=== PATIENT | female | born 1975 | race Hispanic/Latino ===

== ENCOUNTER 2018-12-14 19:06 | Emergency (ER) | payer BC, OTHER ==
[~2018-12-14] VITALS: Ht 167.6 cm; Wt 108.4 kg
[~2018-12-14 19:06] MED LIST: LISINOPRIL-HCT1 EACH PO; LISINOPRIL10 MG PO; MICRONASE2.5 MG; Z.0.ESIDRIX25 MG; Z.0.LEVOTHROID50 MCG PO; Z.0.LIPITOR10 MG; Z.0.LISINOPRIL40 MG
[2018-12-14] MEDS ORDERED: ONDANSETRON HCL INJ 2MG/ML 2ML 2 MG/ML VIAL IV STA (19:14)
[2018-12-14] MEDS ORDERED: SODIUM CHLORIDE 0.9% 1000ML 1,000 ML IV SCH ×2 (19:15→19:30)
[2018-12-14] MEDS ORDERED: MORPHINE SULFATE INJ 4 MG/ML INJ 1ML ONE (19:31)
[2018-12-14] MEDS ORDERED: ONDANSETRON HCL INJ 2MG/ML 2ML 2 MG/ML VIAL ONE (19:31)
--- NOTE | 2018-12-14 19:35 | NUR ---
US TECH ETA 45 MINUTES
[2018-12-14] MEDS ORDERED: MORPHINE SULFATE 5 MG/ML VIAL IV ONE (20:00)
[2018-12-14] MEDS ORDERED: KETOROLAC TROMETHAMINE 30 MG/ML VIAL IV STA (20:10)
[2018-12-14] MEDS ORDERED: PROMETHAZINE HCL (IM) 25 MG/ML VIAL ONE (20:15)
[2018-12-14] MEDS ORDERED: PROMETHAZINE 25MG/ NS 50ML (IV) IV ONE (20:15)
[2018-12-14] MEDS ORDERED: KETOROLAC TROMETHAMINE 30 MG/ML VIAL ONE (20:15)
[2018-12-14] MEDS ORDERED: IOPAMIDOL 370 MG/ML 200 ML INFUS..BTL INJ ONE (20:42)
--- NOTE | 2018-12-14 22:11 | Diagnostic Imaging Report ---
EXAM: Gallbladder ultrasound INDICATION: Abdominal pain, nausea, vomiting COMPARISON: None. TECHNIQUE: Transverse and longitudinal images of the right upper abdomen were obtained. FINDINGS: Liver: Size: 16.5 cm in the right midclavicular line, normal Appearance: Increased echogenicity, smooth contour Mass: No focal masses Gallbladder: Stones/Sludge: None Wall: 0.3 cm Appearance: No pericholecystic fluid or hydrops. Sonographic Asencio's Sign: Negative Bile Ducts: Intrahepatic Ducts: No dilatation Extrahepatic Ducts: Common bile duct measures 0.4 cm, no dilatation Pancreas: Incompletely visualized due to overlying bowel gas, but no abnormality identified involving the visualized portions of the pancreas. Right Kidney: Size: 11.3 cm Echogenicity: Normal Parenchymal thickness: Normal Collecting system: No hydronephrosis Stones: None Cyst/Mass: None Vessels: Aorta: Visualized portions are normal Inferior Vena Cava: Visualized portions are normal Main portal vein: 1.3 cm in diameter, nondilated. Normal direction of hepatopedal blood flow. Free Fluid: No ascites or pleural effusion IMPRESSION: Findings suggestive of hepatic steatosis. No evidence of cholecystitis. Signed by: Umesh Santos DO on 12/14/2018 10:08 PM
--- NOTE | 2018-12-14 22:17 | Diagnostic Imaging Report ---
EXAM: CT Abdomen and Pelvis WITH contrast INDICATION: Abdominal pain COMPARISON: None. TECHNIQUE: Abdomen and pelvis were scanned utilizing a multidetector helical scanner from the lung base to the pubic symphysis after administration of IV contrast. Coronal and sagittal reformations were obtained. Routine protocol was performed. Scan was performed when during portal venous phase. IV CONTRAST: 100 mL of Isovue 300 ORAL CONTRAST: None COMPLICATIONS: None RADIATION DOSE: Total DLP: 843 mGy*cm Estimated effective dose: (DLP x 0.015 x size factor) mSv CTDIvol has been reviewed. It is below the limits set by the Radiation Protocol Committee (RPC). Dose modulation, iterative reconstruction, and/or weight based adjustment of the mA/kV was utilized to reduce the radiation dose to as low as reasonably achievable. FINDINGS: LINES and TUBES: None. LOWER THORAX: Unremarkable HEPATOBILIARY: Decreased hepatic attenuation. The liver is mildly enlarged. No focal hepatic lesions. No biliary ductal dilation. GALLBLADDER: No radio-opaque stones or sludge. No wall thickening. SPLEEN: No splenomegaly. PANCREAS: No focal masses or ductal dilatation. ADRENALS: No adrenal nodules KIDNEYS/URETERS: Kidneys enhance symmetrically. No hydronephrosis. No cystic or solid mass lesions. No stones. GI TRACT: No abnormal distention, wall thickening, or evidence of bowel obstruction. Small amount of fluid in the lower esophagus. Appendix is normal. PELVIC ORGANS/BLADDER: A 2.3 cm corpus luteal cyst in the right ovary.. LYMPH NODES: No lymphadenopathy. VESSELS: Unremarkable. PERITONEUM / RETROPERITONEUM: No free air or fluid. BONES: Unremarkable. SOFT TISSUES: Unremarkable. IMPRESSION: Small amount of fluid in the lower esophagus may be indicative of gastroesophageal reflux. Signed by: Umesh Santos DO on 12/14/2018 10:14 PM
[2018-12-14] MEDS ORDERED: BACTRIM DS TAB1 EACH PO (22:36)
[2018-12-14] MEDS ORDERED: ONDANSETRON ODT8 MG PO (22:36)
[2018-12-14] MEDS ORDERED: ACETAMINOPHEN 325 MG TAB ONE (22:42)
[2018-12-14] MEDS ORDERED: ACETAMINOPHEN 325 MG TAB PO ONE (22:45)
[2018-12-14] MEDS ORDERED: ULTRAM 50MG50 MG PO (22:46)
[2018-12-14] MEDS ORDERED: IBUPROFEN 600 MG TAB PO STA (23:41)
[2018-12-14] MEDS ORDERED: IBUPROFEN 200 MG TAB ONE (23:44)
[2018-12-14] MEDS ORDERED: TRAMADOL HCL 50 MG TAB PO ONE (23:45)
[2018-12-14] MEDS ORDERED: ONDANSETRON HCL 4 MG ORAL DISINTEGRATING TAB PO ONE (23:45)
[2018-12-14] MEDS ORDERED: TRIMETHOPRIM/SULFAMETHOXAZOLE 160-800 MG TAB ONE (23:45)
[2018-12-14] MEDS ORDERED: TRIMETHOPRIM/SULFAMETHOXAZOLE 160-800 MG TAB PO ONE (23:45)
[2018-12-14] MEDS ORDERED: TRAMADOL HCL 50 MG TAB ONE (23:45)
[2018-12-14] MEDS ORDERED: ONDANSETRON HCL 4 MG ORAL DISINTEGRATING TAB ONE (23:46)
[2018-12-14 23:49] VITALS: BP 140/86
--- NOTE | 2018-12-14 23:51 | NUR ---
pt continues to have fever after tylenol given dr quiroz and talking with patient. addition medications given to pt. instructions given to pt. pt verbalized understanding and was ok being discharged. pt instruction if condition worsens to return to er.
== END 2018-12-14 23:51 | disposition home or self-care (01) ==
LOC: FSED 19:06
DX: R10.11 Right upper quadrant pain (principal); R10.13 Epigastric pain; R11.2 Nausea with vomiting, unspecified; R19.7 Diarrhea, unspecified
CPT/HCPCS: 36415; 74177; 76705; 80053; 81003; 81025; 83605; 83690; 85025; 93005; 96374; 96376; 99284; J1885; J2270 ×2; J2405; J2550; J7030; Q0162; Q9967; 74160

== ENCOUNTER 2024-01-21 18:42 | Emergency (ER) | payer OTHER ==
[~2024-01-21] VITALS: Ht 167.6 cm; Wt 105.2 kg
[~2024-01-21 18:42] MED LIST changes: +BACTRIM DS TAB1 EACH PO; +ONDANSETRON ODT8 MG PO; +ULTRAM 50MG50 MG PO
[2024-01-21] MEDS ORDERED: IBUPROFEN 600 MG TAB PO STA (19:50)
[2024-01-21] MEDS: AMOXICILLIN/CLAVULANATE K 875 MG TAB PO STA (21:16)
[2024-01-21] MEDS: KETOROLAC TROMETHAMINE 60 MG/2 ML VIAL IM ONE (21:16)
[2024-01-21] MEDS ORDERED: AMOX TR-K CLV1 EAC2 PO (21:17)
[2024-01-21] MEDS ORDERED: NAPROXEN500 MG PO (21:19)
[2024-01-21] MEDS ORDERED: CORTISPORIN-TC10 M1 RIGHT EAR (21:21)
[2024-01-21 21:42] VITALS: PULSE 63; RESP 16; TEMP 97.4; O2SAT 97
[2024-01-22] MEDS ORDERED: DOCUSATE SODIUM LIQD 100 MG/10 ML UDC PO SCH (09:00)
== END 2024-01-21 21:46 | disposition home or self-care (01) ==
LOC: FSED 18:54
DX: H92.01 Otalgia, right ear (principal); T16.1XXA Foreign body in right ear, initial encounter; J01.90 Acute sinusitis, unspecified; K11.21 Acute sialoadenitis; E11.9 Type 2 diabetes mellitus without complications; I10 Essential (primary) hypertension; E03.9 Hypothyroidism, unspecified
CPT/HCPCS: 81003; 81025; 99283; J1885